=== PATIENT | female | born 1970 | race Caucasian/White ===

== ENCOUNTER 2021-07-06 22:16 | Emergency (ER) | payer OTHER ==
[2021-07-06 23:07] LABS: BASOPHIL 0.9 % (0-2); EOSINOPHIL 1.4 % (0-5); HCT 41.1 % (37.0-47.0); HGB 13.8 g/dl (12.5-16.0); LYMPHOCYTE 29.6 % (15-48); MCH 30.6 pg (25.0-31.0); MCHC 33.6 g/dL (32.0-36.0); MCV 91.1 fL (78.0-100.0); MONOCYTE 10.5 % (0-12); MPV 9.8 fL (6.0-9.5); NEUTROPHIL 57.1 % (41-80); NRBC 0; PLT 268 K/uL (150-400); RBC 4.51 M/uL (4.20-5.40); RDW 12.6 % (11.5-14.0); WBC 9.3 K/uL (4.0-10.5)
[2021-07-06 23:11] LABS: INR 0.93 (0.9-1.2); PROTHROMBIN TIME 11.9 SECONDS (11.8-13.4)
[2021-07-06 23:22] LABS: ALBUMIN 3.9 g/dL (3.4-5.0); BILIRUBIN - TOTAL 0.6 mg/dL (0.2-1.0); BUN/CREAT RATIO (CALC) 17.6 RATIO; CREATININE 0.74 mg/dL (0.51-0.95); GLOBULIN (CALCULATION) 3.8 g/dL; TOTAL PROTEIN 7.7 g/dL (6.4-8.2)
[2021-07-06 23:30] LABS: CKMB 0.8 ng/mL (0.0-3.6)
== END 2021-07-07 01:10 | disposition other institution (70) ==
LOC: FER 22:16
PROVIDERS: Emergency Medicine
DX: R53.1 Weakness (principal); R20.2 Paresthesia of skin; I10 Essential (primary) hypertension; Z79.899 Other long term (current) drug therapy
CPT/HCPCS: 36415; 70450; 71045; 80053; 80061; 82550; 82553; 83874; 84484; 85025; 85610; 85730; 93005